=== PATIENT | male | born 1995 | race Caucasian/White ===

== ENCOUNTER 2024-01-04 13:14 | Outpatient (AMB) | payer OTHER, SELFPAY ==
--- NOTE | 2024-01-04 13:19 | MHC.PC.OV ---
Vital Signs 01/04/24 13:26 Height 6 ft 2 in Weight 197 lb 4 oz BMI 25.3 BP 114/74 Blood Pressure Location Lt brachial Position Sitting Respiration 16 Pulse 65 Pulse Source Pulse Oximeter Temp 97.5 F Temp Source Temporal Artery Scan Pulse Oximetry (%) 97 Oxygen Delivery Method Room Air Intake Visit Reasons: est care always feels tired/ low t possibly Intake Note: patient here for new patient visit. Community Development Director Required: No Allergies No Known Allergies Allergy (Verified 01/04/24 13:32) Medication List - Last Reconciled 01/04/24 by Robert Ivy CNP bupropion HCl SR (Wellbutrin SR) 150 mg PO QAM Tobacco use date assessed: 01/04/24 Dental Screening Dental Screen Date: 01/04/24 Did you have a dental visit in the last 12 months?: Yes Did you have a dental problem in the last 6 months where you did not have access to dental care?: No Was dental information given to patient?: Patient has dentist HPI HPI Comments History of Present Illness Details New patient Prior PCP:?[facility] [place] Last office visit/CPE: About 3-4 months Last labs: About 2 years Acute issue(s): ADHD, Depression On Welbutrin 150mg daily Reports controlled ADHD and depressive symptoms He sees a psychiatrist via telehealth once a month. His psychiatrist manages his psychotropic medications. He was followed by a therapist He reports fatigue and low sex drive for the past 4-5 years. His symptoms have progressively gotten worse PMHx: ADHD, Depression SurgHx: None FHx: Mom: Mental illness, h/o alcohol abuse. Dad: h/o alcohol abuse SocHx: Smokes 1 cigarette daily for the past 5-6 months; has been smoking since he was 13 y/o, quit for 3.5 months this year; he plans on quitting again. Drinks alcohol occasionally. Smokes a couple hits of marijuana every other day He notes that he is sexually active, in a monogamous relationship, and has no concerns for [facility] Medical History (Updated 01/04/24 @ 13:59 by Robert Ivy CNP) Broken toe Family History (Updated 01/04/24 @ 13:37 by Sintia Elizabeth) Father Alcohol abuse FH: mental illness High blood pressure High cholesterol Mother Alcohol abuse FH: mental illness Diabetes Maternal Aunt Substance abuse Social History Housing: House Tobacco use type: Cigarette Cigarettes Per Day: 1 Years Smoked: 15 e-Cigarette/Vaping Use: Never Used Second Hand Smoke Exposure: No Substance Use Type: Marijuana service: No Current occupational status: unemployed Current occupational exposures/hazards: No Cognitive needs: No Hearing needs: No Vision needs: No Questionnaire PHQ-9 Over the last 2 weeks, how often have you been bothered by any of the following problems? 1. Little interest or pleasure in doing things: more than half the days 2. Feeling down, depressed, or hopeless: several days 3. Trouble falling or staying asleep, or sleeping too much: several days 4. Feeling tired or having little energy: more than half the days 5. Poor appetite or overeating: more than half the days 6. Feeling bad about yourself - or that you are a failure or have let yourself or your family down: several days 7. Trouble concentrating on things, such as reading the newspaper or watching television: more than half the days 8. Moving or speaking so slowly that other people could have noticed. Or the opposite - being so fidgety or restless that you have been moving around a lot more than usual: several days 9. Thoughts that you would be better off or of hurting yourself in some way: not at all Total score: 12 Depression Screening Interpretation: Positive Depression Screening Done: Yes 34631 - PHQ-9 Billing: Yes Source: Developed by Drs. Melvin Maher, Marisa Poe, Niraj Funk and colleagues, with an educational lawanda from [employer]. Thrive Questionnaire Date Thrive assessed: 01/04/24 I am a: Patient What is your living situation today?: I have a steady place to live Within the past 12 months, did the food you bought not last and you didn't have the money to get more?: Never true Within the past 12 months, did you worry whether your food would run out before you got money to buy more?: Never true Do you have trouble paying for medicines?: No Do you have trouble getting transportation to medical appointments?: No Do you have trouble paying your heating and electricity bill?: No Do you have trouble taking care of your child, family member or friend?: No Do you have trouble with day-to-day activities such as bathing, preparing meals, shopping, managing finances, etc.?: No Are you currently unemployed and looking for a job?: No Are you interested in more education?: No Please select the resources that you would like help with: None Currently or been in a relationship where the following occur: No concerns reported THRIVE Score: 0 AUDIT C Alcohol Use Questionnaire (AUDIT-C) 1. How often do you have a drink containing alcohol?: Monthly or less 2. How many drinks containing alcohol do you have on a typical day when you are drinking?: 1 or 2 3. How often do you have six or more drinks on one occasion?: Never Total Score: 1 BRYCE-7 AMB Questionnaire BRYCE-7 Date BRYCE - 7 assessed: 01/04/24 Feeling nervous, anxious, or on edge: 1 = Several days Not being able to stop or control worryin = Several days Worrying too much about different things: 1 = Several days Trouble relaxin = Several days Being so restless that it is hard to sit still: 1 = Several days Becoming easily annoyed or irritable: 2 = More than half the days Feeling afraid as if something awful might happen: 1 = Several days Total BRYCE-7 score (0-4 normal; 5-9 mild; 10-14 moderate; 15-21 severe): 8 Source: Developed by Drs. Melvin Maher, Marisa Poe, Niraj Funk and colleagues, with an educational lawanda from [employer]. BRYCE-7 Assessment Billing BRYCE-7 Assessment Tool: BRYCE-7 Assessment 34536 Review of Systems Const Details: Denies chills, Reports fatigue, Denies fever(s), Denies headache(s) and Denies weakness HEENT Denies change in vision, Denies dizziness, Denies headache(s), Denies hearing loss, Denies nasal congestion, Denies sinus pain, Denies sinus pressure and Denies sore throat Card Denies chest pain, Denies lightheadedness, Denies dyspnea and Denies other (palpitations) Resp Denies cough, Denies dyspnea and Denies wheezing GI Denies abdominal pain, Denies melena, Denies hematochezia, Denies change in bowel habits, Denies dyspepsia and Denies nausea Denies hematuria and Denies dysuria Musc Denies abnormal gait, Denies myalgias, Denies arthralgias, Denies numbness and Denies tingling Skin/Breast Denies rash, Denies unusual bruising and Denies wounds Neuro Denies abnormal gait, Denies dizziness, Denies headache(s), Denies memory loss, Denies numbness, Denies Sensory deficit (Neuro), Denies tingling and Denies weakness Psych Denies anxiety, Denies depression and Denies memory loss Endo Denies cold intolerance, Reports fatigue, Denies heat intolerance, Denies polydipsia and Denies polyuria Óscar/Lymph Denies easy bleeding and Denies easy bruising Aller/Immun Denies wheezing Physical exam (Primary Care) Vital Signs: Last Vital Signs Temp 97.5 F 01/04/24 13:26 Pulse 65 01/04/24 13:26 Resp 16 01/04/24 13:26 BP 114/74 01/04/24 13:26 Pulse Ox 97 01/04/24 13:26 Oxygen Delivery Method Room Air 01/04/24 13:26 BMI result Body Mass Index 25.3 Tobacco/Smoking Status: Tobacco use Status Tobacco use date assessed 01/04/24 01/04/24 13:26 Patient Tobacco Use Status Current someday Tobacco (is 01/04/24 13:26 slowly quitting) Tobacco use type Cigarette 01/04/24 13:26 e-Cigarette/Vaping Use Never Used 01/04/24 13:26 Depression Screening Interpretation: Positive Currently or been in a relationship where the following occur: No concerns reported Const Other: General: no acute distress, well developed, alert and awake Nutritional Appearance: well nourished Orientation/consciousness: patient oriented x3 HENMT Head: Yes normocephalic and Yes atraumatic Ears: hearing grossly normal bilaterally and TM's normal bilaterally General nose exam: Normal external nose present and Normal nares present Mouth: Normal oral and palatal mucosa present and moist mucous membranes Teeth and gingiva: dentition normal Throat: Yes oropharynx normal Eyes Pupils: Equal, round and reactive pupils present and Pupil accommodation reflex normal EOM: EOMs intact bilaterally Neck Neck: Yes normal visual inspection, Yes no lymphadenopathy and Yes trachea midline Thyroid: Thyroid normal Carotids: no bruits Lymphatic: no lymphadenopathy noted Chest Chest palpation & inspection: normal inspection of the chest Resp Effort & Inspection: normal respiratory effort Auscultation: clear to auscultation bilaterally Cardio Rate: regular rate Rhythm: regular rhythm Heart sounds: S1 normal heart sound present, S2 normal heart sound present, no gallops, no murmurs and no rubs Bruits: no abdominal aortic bruits and no carotid bruits GI Palpation (GI): No Abdominal aortic bruit present, Soft to palpation, nontender, No hepatosplenomegaly present and No Rebound tenderness present Auscultation: normal bowel sounds General: Yes no CVA tenderness Back/Spine/Pelvis Back: no CVA tenderness Cervical Spine: cervical ROM normal and No Cervical spine tenderness Thoracic/Lumbar Spine: thoraco-lumbar ROM normal, No pain with thoraco-lumbar ROM, No thoracic spinal tenderness and No lumbar spinal tenderness Skin General: warm and dry. Normal skin color. Normal skin turgor Lesions: no lesions Rashes: no rashes Trauma: no lacerations or abrasions Wounds: no wounds Nails: normal Neuro General: patient oriented x3, gait normal and CN's II-XI intact bilaterally Cranial nerves: Yes Equal, round and reactive pupils present Cognition (Neuro): normal cognition Gait exam (Neuro): Normal gait present Motor exam (neuro): 5/5 motor strength present throughout Sensory Exam: No Sensory deficit (Neuro) Deep tendon reflexes (DTR's): Right patellar reflex intensity grade: 2+ and Left patellar reflex intensity grade: 2+ Extrem General: Yes normal to inspection, No edema and No calf tenderness Psych Appearance: grossly normal Affect: normal affect Attitude: cooperative Thought process: Normal thought process present Assessment and Plan Assessment & Plan (1) Normal physical examination, routine: Code(s): Z00.00 - Encounter for general adult medical examination without abnormal findings Plan: No significant physical restrictions or limitations noted Continue current treatment regimen Healthy diet and routine exercise encouraged Advised to get lab work done and follow-up for a telehealth visit in 2-3 weeks for labs review Return with symptoms or concerns Verbalized understanding and agreed with the treatment plan (2) ADHD: Code(s): F90.9 - Attention-deficit hyperactivity disorder, unspecified type Plan: Reports controlled ADHD and depressive symptoms Continue current treatment regimen Routine exercise encouraged Continue follow-up with psychiatrist as planned Verbalized understanding and agreed with the plan (3) Depression: Code(s): F32.A - Depression, unspecified Plan: As above (4) Decreased libido without sexual dysfunction: Code(s): R68.82 - Decreased libido Plan: Reports chronic fatigue and low sex drive for the past 4-5 years. His symptoms have progressively gotten worse Will check labs including testosterone levels and make changes as needed Encouraged to continue current treatment regimen Routine exercise encouraged Verbalized understanding and agreed with the treatment plan (5) Chronic fatigue: Code(s): R53.82 - Chronic fatigue, unspecified Plan: As above (6) Smoking trying to quit: Code(s): Z72.0 - Tobacco use Plan: He smokes 1 cigarettes daily. He has history of smoking a pack of cigarettes daily, starting age 13, but has significantly cut down. Intends to quit smoking Instructed on the health risks and complications of cigarette smoking and encouraged to quit Verbalized understanding and agreed with the plan (7) Laboratory tests ordered as part of a complete physical exam (CPE): Code(s): Z00.00 - Encounter for general adult medical examination without abnormal findings Plan: Fasting labs ordered as part of a complete physical exam. Advised to fast for at least 10 hours before getting labs drawn. May drink water Verbalized understanding and agreed with treatment plan. Orders: Orders Complete Blood Count Auto Diff Today Z00.00 - Encounter for general adult medical examination without abnormal findings TSH reflex Free T4 Today Z00.00 - Encounter for general adult medical examination without abnormal findings UA CC w/rflx Micro + Cult Today Z00.00 - Encounter for general adult medical examination without abnormal findings Comprehensive Roll. Panel Fast Today Z00.00 - Encounter for general adult medical examination without abnormal findings Lipid Panel Today Z00.00 - Encounter for general adult medical examination without abnormal findings Testosterone, Total Today R53.82 - Chronic fatigue, unspecified, R68.82 - Decreased libido Coding Level of Care Code New Pt Level 3 (41400) New Pt Prev Care 18-39yr(61736 Diagnoses Normal physical examination, routine Z00.00 ADHD F90.9 Depression F32.A Decreased libido without sexual dysfunction R68.82 Chronic fatigue R53.82 Smoking trying to quit Z72.0 Laboratory tests ordered as part of a complete physical exam (CPE) Z00.00 Additional Codes BRYCE-7 Assessment Billing - BRYCE-7 Assessment Tool: BRYCE-7 Assessment 17960 ([id number])
[2024-01-04 13:26] VITALS: BP 114/74; PULSE 65; RESP 16; TEMP 36.4; O2SAT 97; BMI 25.3
== END 2024-01-04 13:58 | disposition home or self-care (01) ==
PROVIDERS: PCP Nurse Practitioner Family; Visit Provider Nurse Practitioner Family
DX: Z00.00 Encounter for general adult medical examination without abnormal findings (principal); F90.9 Attention-deficit hyperactivity disorder, unspecified type; F32.A Depression, unspecified; R68.82 Decreased libido; R53.82 Chronic fatigue, unspecified; Z72.0 Tobacco use
CPT/HCPCS: 99385

== ENCOUNTER 2024-01-14 07:32 | Outpatient (REF) | payer OTHER, SELFPAY ==
[2024-01-14 11:31] LABS: MANUAL DIFF FLAG NO
[2024-01-14 11:34] LABS: Basophils Absolute Auto 0.1 X10*3/uL (0.0-0.2); Basophils Percent Auto 0.5 % (0-2); Eosinophils Absolute Auto 0.3 X10*3/uL (0.0-0.4); Eosinophils Percent Auto 2.5 % (0-4); Hematocrit 41.6 % (42.0-52.0); Imm Gran Abs Auto 0.06 X10*3/uL (0.00-0.03); Imm Gran Pct Auto 0.6 % (0.0-0.4); Lymphocytes Absolute Auto 2.4 X10*3/uL (1.2-4.9); Lymphocytes Percent Auto 24.4 % (20-40); Mean Corpuscular HGB Conc 33.7 g/dl (31.0-36.0); Mean Corpuscular Hemoglobin 30.8 pg (27.0-33.0); Mean Corpuscular Volume 91.6 fL (80.0-98.0); Mean Platelet Volume 9.4 fL (9.4-12.4); Monocytes Absolute Auto 0.6 X10*3/uL (0.1-1.2); Monocytes Percent Auto 6.2 % (2-11); Neutrophils Absolute Auto 6.5 x10*3/uL (2.0-8.3); Neutrophils Percent Auto 65.8 % (45-73); Platelet Count 303 X10*3/uL (160-400); Red Blood Count 4.54 X10*6/uL (4.60-5.80); Red Cell Distribution Width 13.9 % (11.0-16.0); White Blood Count 9.9 X10*3/uL (4.8-10.8)
[2024-01-14 12:02] LABS: Appearance Urine Turbid; Color Urine Yellow; Glucose Urine UA Negative (Negative); Leukocyte Esterase Urine Negative (Negative); Nitrite Urine Negative (Negative); PH 6.5 (5.0-9.0); Specific Gravity - Urine 1.025 (1.005-1.025); Urine Blood Negative (Negative); Urine Ketones Negative (Negative); Urine Protein Negative (Neg-Trace)
[2024-01-14 12:34] LABS: Alanine Aminotransferase 24 U/L (0-40); Albumin Level 4.2 g/dL (3.5-5.0); Alkaline Phosphatase 55 U/L (39-117); Anion Gap 12 (12-20); Aspartate Amino Transferase 21 U/L (5-37); Bilirubin Total 0.5 mg/dL (0.0-1.0); Blood Urea Nitrogen 15 mg/dL (9-16); Calcium 9.3 mg/dL (8.4-10.2); Carbon Dioxide 25 mmol/L (22-29); Chloride 107 mmol/L (96-108); Cholesterol 209 mg/dL (<200); Estimated Glomerular Filt Rate > 60; Glucose Fasting 88 mg/dL (60-99); HDL Cholesterol 49 mg/dL (>40); LDL Cholesterol Calculated 121 mg/dL (<100); Potassium 3.6 mmol/L (3.3-5.1); Sodium 140 mmol/L (135-145); Total Protein 6.7 g/dL (6.5-8.0); Triglycerides 195 mg/dL (<150)
[2024-01-14 12:40] LABS: TSH reflex Free T4 1.51 uIU/mL (0.32-4.0)
[2024-01-18 14:44] LABS: Testosterone, Total 330 ng/dL (250-1100)
== END 2024-01-14 07:33 | disposition home or self-care (01) ==
LOC: HO.WFDLDS 07:32
PROVIDERS: Visit Provider Nurse Practitioner Family
DX: Z00.00 Encounter for general adult medical examination without abnormal findings (principal); R68.82 Decreased libido; R53.82 Chronic fatigue, unspecified
CPT/HCPCS: 36415; 80053; 80061; 81003; 84403; 84443; 85025

== ENCOUNTER 2024-01-22 16:24 | Outpatient (AMB) | payer OTHER, SELFPAY ==
--- NOTE | 2024-01-22 10:15 | A.OFFPC_ITS ---
Intake Visit Reasons: follow up labs Intake Note: patient here for follow up on labs. Architectural Engineer Required: No Allergies No Known Allergies Allergy (Verified 01/22/24 16:22) Tobacco use date assessed: 01/22/24 Dental Screening Dental Screen Date: 01/22/24 Did you have a dental visit in the last 12 months?: Yes Did you have a dental problem in the last 6 months where you did not have access to dental care?: No Was dental information given to patient?: Patient has dentist HPI HPI Comments History of Present Illness Details 28-year-old male presents for telehealth visit for review of recent lab results He offers no complaints and denies acute symptoms at this time He admits to consuming significant amount of meat and whole milk PFSH Medical History (Updated 01/22/24 @ 10:16 by Robert Ivy CNP) Broken toe Family History (Updated 01/04/24 @ 13:37 by Sintia Elizabeth) Father Alcohol abuse FH: mental illness High blood pressure High cholesterol Mother Alcohol abuse FH: mental illness Diabetes Maternal Aunt Substance abuse Social History (Updated 01/04/24 @ 13:35 by Sintia Elizabeth) Housing: House Tobacco use type: Cigarette Cigarettes Per Day: 1 Years Smoked: 15 e-Cigarette/Vaping Use: Never Used Second Hand Smoke Exposure: No Substance Use Type: Marijuana service: No Current occupational status: unemployed Current occupational exposures/hazards: No Cognitive needs: No Hearing needs: No Vision needs: No Questionnaire Thrive Questionnaire Date Thrive assessed: 01/04/24 BRYCE-7 AMB Questionnaire BRYCE-7 Date BRYCE - 7 assessed: 01/04/24 Source: Developed by Drs. Melvin Maher, Marisa Poe, Niraj Funk and colleagues, with an educational lawanda from [employer]. Review of Systems Const Details: Const Denies chills, Denies fatigue, Denies fever(s), Denies headache(s) and Denies weakness ENT Denies dizziness and Denies headache(s) Card Denies chest pain, Denies lightheadedness, Denies dyspnea and Denies other (Palpitations) Resp Denies cough, Denies dyspnea, Denies wheezing and Denies other ( shortness of breath) GI Denies abdominal pain, Denies melena, Denies hematochezia, Denies change in bowel habits, Denies dyspepsia and Denies nausea Denies hematuria and Denies dysuria Musc Denies abnormal gait, Denies myalgias, Denies arthralgias, Denies numbness and Denies tingling Skin/Breast Denies rash, Denies unusual bruising and Denies wounds Neuro Denies abnormal gait, Denies dizziness, Denies headache(s), Denies memory loss, Denies numbness, Denies Sensory deficit (Neuro), Denies tingling and Denies weakness Psych Denies anxiety, Denies depression, Denies memory loss Endo Denies cold intolerance, Denies fatigue, Denies heat intolerance, Denies polydipsia and Denies polyuria Aller/Immun Denies wheezing Physical exam (Primary Care) Tobacco/Smoking Status: Tobacco use Status Tobacco use date assessed 01/22/24 01/22/24 16:23 Tobacco use type Cigarette 01/22/24 10:18 e-Cigarette/Vaping Use Never Used 01/22/24 10:18 Thrive Assessment: Date of Thrive Assessment Date Thrive assessed 01/04/24 01/22/24 10:18 Const Other: Telehealth visit. No physical exam Telehealth Telehealth Telehealth Platform: Telephone Location of provider rendering services: practice address Location of patient: address on file Patient Identification confirmed using: Name, : Yes Telehealth method: voice only Patient verbally consented to treatment: Yes Patient verbally consented to billing insurance company: Yes Patient informed of any privacy concerns related to visit: Yes Assessment and Plan Assessment & Plan (1) Hyperlipidemia: Code(s): E78.5 - Hyperlipidemia, unspecified Plan: Recent lab results reviewed with the patient; unremarkable findings except for elevated triglycerides and total cholesterol, 195 and 209 respectively Advised to limit foods high in saturated fat and avoid foods high in trans fat; limit meat and whole milk consumption Routine exercise encouraged Will recheck lipid panel level. Advised to fast for 10-12 hours, may drink water only, and get blood work done a few days before his next visit Follow-up for a telehealth visit in 2 months or return sooner with symptoms or concerns Verbalized understanding and agreed with the treatment plan Orders: Orders Lipid Panel 2 Months E78.5 - Hyperlipidemia, unspecified Coding Level of Care Code Tele Est Pt Level 3 (46438) Diagnoses Hyperlipidemia E78.5
== END 2024-01-22 16:55 | disposition home or self-care (01) ==
LOC: HO.HMGFM 16:24
PROVIDERS: PCP Nurse Practitioner Family; Visit Provider Nurse Practitioner Family
DX: E78.5 Hyperlipidemia, unspecified (principal)
CPT/HCPCS: 99441